=== PATIENT | female | born 2000 | race Caucasian/White ===

== ENCOUNTER 2022-01-04 16:59 | Emergency (ER) | payer SELFPAY ==
[2022-01-04 17:01] VITALS: BP 81/53; PULSE 111; RESP 24; TEMP 36.2; BMI 17.4
[2022-01-04] MEDS: DiphenhydrAMINE 50 MG/ML Syringe 25 MG IV (17:05)
[2022-01-04] MEDS: Epi Pen (EQUIV) 0.3 MG Syringe IM (17:05)
[2022-01-04] MEDS: MethylPREDNISolone 125 MG/2 ML Vial IV (17:05)
[2022-01-04] MEDS: Famotidine 200 MG/20 ML MDV 20 MG in 0.9% Normal Saline (Pres. free 8 ML 300 MG IV (17:08)
--- NOTE | 2022-01-04 17:08 | EX.ED.DYSGE1 ---
HPI History of Present Illness Chief Complaint: Allergic Reaction Informant: patient and parent Onset/Context/Timing Onset: Today Narrative Narrative: Patient presents with 4 bee stings. She was stung approximate half an hour prior to arrival. She has an allergy to bee stings but does not have an EpiPen. Mother states she usually does take some pills. She was not able to take any medication today. PFSH PFSH Medical History no medical history no medical history Home Medications epinephrine 0.3 mg/0.3 mL injection, auto-injector 0.3 mg (0.3 mL) IM Q4H PRN anaphylaxis #2 ea 01/04/22 [Rx Last Taken Unknown] Allergy/AdvReac Type Severity Reaction Status Date / Time bee venom protein (honey bee) Allergy Swelling Verified 01/04/22 17:03 Surgical History no surgical history no surgical history Social History Smoking Status: Never smoker ROS ROS ED Constitutional Constitutional ED: Denies chills or fever(s) Eyes Eyes: Denies change in vision or discharge from eye(s) ENT ENT ED: Denies discharge from eye(s), rhinorrhea or sore throat Cardiovascular Cardiovascular: Denies chest pain or palpitations Respiratory/Chest Respiratory/Chest: Denies cough or dyspnea Gastrointestinal Gastrointestinal: Denies abdominal pain, diarrhea, nausea or vomiting Genitourinary Genitourinary ED: Denies dysuria Musculoskeletal Musculoskeletal: Denies back pain or extremity pain Integumentary Denies Abrasions or rash Neurologic Neurologic: Reports weakness; Denies headache(s) Allergic/Immunologic Allergic/Immunologic ED: Denies lip swelling, tongue swelling or urticaria EXAM Physical Exam Const Vital Signs: 01/04/22 17:01 01/04/22 17:11 Temperature 97.1 F L Temperature Source Temporal Pulse Rate 111 H 94 Respiratory Rate 24 H 26 H Blood Pressure 81/53 L 97/71 Blood Pressure Mean 62 79 Pulse Ox 94 Oxygen Delivery Method Nasal Cannula Oxygen Flow Rate (L/min) 5 Positive well nourished and well developed General Appearance ED: well developed HEENT Reports moist mucous membranes HEENT Narrative: Face slightly flushed. No tongue edema noted. Posterior pharynx exam is normal. Eyes Eyes Narrative: Conjunctival injection bilaterally. Neck no lymphadenopathy Chest Wall inspection of chest normal and palpation of chest normal Resp normal respiratory effort and clear to auscultation bilaterally Cardio regular rhythm Rate: tachycardic GI non-tender Palpation: soft Extremity Extremity Narrative: Mild erythema to the left forearm and left thigh from sites of bee sting. Neuro Neuro Narrative: Patient is alert and answers questions. She is slightly sleepy. She is tolerating secretions well. She is moving all 4 extremities. MDM MDM MDM Narrative Medical decision making narrative: Patient given EpiPen along with Solu-Medrol, Benadryl, Pepcid, IV fluids. She is placed on security monitor. Treatment and Re-Evaluation Narrative: Patient is rechecked frequently. Vital signs are improved and stabilized. She is alert and appropriate. Erythema is improved. Patient is observed for total of 3 hours and stable at this point. She will be discharged with family. Discharge Plan Triage Chief Complaint: Allergic Reaction ED Provider: Aileen Paige Dx/Rx/DC Orders Clinical Impression: Anaphylaxis, Bee sting Instructions: ED BEE STING General Allergic Rxn Prescriptions: New epinephrine 0.3 mg/0.3 mL auto-injector 0.3 mg IM Q4H PRN (Reason: anaphylaxis) Qty: 2 0RF Primary Care Provider: Simon Dobson Referrals: Simon Dobson DO [Primary Care Provider] - 1 Week [facility] Doctor,Out of [Non-Staff] - Disposition Disposition: Home, Self Care
[2022-01-04 17:11] VITALS: BP 97/71; PULSE 94; RESP 26; O2SAT 94
[2022-01-04] MEDS: 0.9% Normal Saline 1,000 ML 999 ML IV (17:11)
[2022-01-04 19:00] VITALS: BP 124/75; PULSE 89; RESP 18; O2SAT 100
[2022-01-04 20:00] VITALS: BP 114/65; PULSE 82; RESP 18; O2SAT 100
[2022-01-04 20:02] VITALS: BP 114/65; PULSE 82; RESP 18; O2SAT 100
== END 2022-01-04 20:10 | disposition home or self-care (01) ==
PROVIDERS: Emergency Provider Emergency Medicine; PCP Family Medicine; Visit Provider Emergency Medicine
DX: T63.441A Toxic effect of venom of bees, accidental (unintentional), initial encounter (principal)
CPT/HCPCS: 96361; 96372; 96374; 96375; 99283; J7030; A4216; J3490